=== PATIENT | female | born 1955 | race Caucasian/White ===

== ENCOUNTER 2019-06-26 18:36 | Emergency (ER) | payer OTHER, SELFPAY ==
[2019-06-26 18:37] VITALS: BP 160/71; PULSE 88; RESP 169; TEMP 37.3; O2SAT 97; BMI 33.0
--- NOTE | 2019-06-26 18:44 | ED.DCSUM_ITS ---
History of Present Illness Chief Complaint: Allergic Reaction Detail of Chief Complaint: Facial swelling forehead bilaterally and maxillary region bilaterally Informant: Patient Onset: Today Context: Sudden Onset Timing: Continuous Quality: Facial swelling Location: Forehead and maxillary region bilaterally Current Severity: Mild Worsened by: Possible allergic reaction Relieved by: Nothing Associated Symptoms: No other symptoms Narrative: Patient is a 64-year-old woman with significant past medical history of multiple medical problems who presents because she believes she has swelling of her forehead and maxillary region bilaterally. She denies rash. She denies itching. She denies swelling of her lips, tongue or throat. She denies respiratory or cardiac symptoms. She denies orthostatic symptoms. She denies vomiting or diarrhea. She denies change in voice or difficulty swallowing. She states the redness to her skin is normal. Her facial features were compared to her [employer] driver's license photo and there is no difference in my opinion. Prior similar symptoms: Yes - Angioedema secondary to lisinopril Recent Illness/Hospitalization: No - Past Medical History (1) History of diabetes mellitus Status: Acute (2) History of hypertension Status: Acute (3) Acquired absence of left breast Status: Acute Comment: Planned acquired absence left breast after prophylactic mastectomy (4) Invasive ductal carcinoma of right breast Status: Acute Past Medical History - Allergies and Home Meds Allergies/Adverse Reactions: Allergies lisinopril Allergy (Verified 08/16/16 13:47) Angioedema Prior records reviewed: Yes Surgical History: - - Mastectomy Lives: Alone Smoking Status: Never smoker Alcohol: None Drugs: None Review of Systems General: Denies: Chills, Fever, Malaise, Subjective, Sweats Eyes: Denies: Visual changes - bilaterally, Blurred Vision - bilaterally ENT: Denies: Bilateral ear pain, Rhinorrhea, Sore throat Cardiovascular: Denies: Chest pain, Palpitations Respiratory: Denies: Dyspnea, Cough, Dyspnea on exertion Gastrointestinal: Denies: Nausea, Vomiting, Diarrhea Musculoskeletal: Denies: Myalgias, Arthralgias, Neck pain, Back pain, Swelling, Extremity Pain Skin: Denies: Rash, Wounds Psych: Reports: Depression, Anxiety Hematologic: Denies: Easy bruising, Easy bleeding Allergy: Denies: Uticaria, Swelling of the mouth, Swelling of the tongue Physical Exam Vital Signs/Narrative: Vital Signs Temp Pulse Resp BP Pulse Ox 06/26/19 18:37 99.2 F H 88 169 H 160/71 H 97 Inital Vital Signs reviewed: Yes General: Well nourished, Well developed, No Acute Distress Head: Normocephalic, Atraumatic Eyes: Perrl, EOMI. Negative for: Pale conjunctiva, Scleral icterus ENT: Moist mucous membranes, No rhinorrhea, TM's clear. Negative for: Dry mucous membranes, Nasal congestion, Sinus tenderness Neck: Supple, Nontender, No lymphadenopathy, No JVD, - - Trachea is midline. There is no stridor. There is no carotid bruits. Cardiovascular: Regular rate, Regular rhythm, No murmurs, Normal S1, Normal S2 Respiratory: No distress, CTA bilaterally, Chest nontender Back: Nontender, Normal Inspection Extremities: Nontender, No edema Skin: Normal color, No rash, No Trauma. Negative for: Cyanosis, Diaphoresis, Jaundice Neurological: Alert, Oriented x3, Cranial nerves II-XII grossly intact, Normal Strength, Normal Sensation Psychological: Normal affect, Normal Mood Diagnostic/Tx/Re-eval - Medical Decision Making Since patient has history of anxiety and phobias will observe in the emergency department for 30 to 60 minutes.She states she completed mowing the ER at 1530. Patient was reassessed at 1950. There is no change in appearance. There is no angioedema, there is no erythema, there is no urticaria. ED Disposition - Plan for ED Patient: Disposition: Home or Assisted Living Diagnosis: Facial swelling Instructions: MEDICAL SCREENING EXAM, NonUrgent Referrals: Wolfgang Torres III, MD [Primary Care Provider] - As Needed
[2019-06-26 20:04] VITALS: BP 135/72; PULSE 81; RESP 16; O2SAT 98
== END 2019-06-26 20:05 | disposition home or self-care (01) ==
PROVIDERS: Emergency Provider Emergency Medicine; Family Provider Family Medicine; PCP Family Medicine
DX: R22.0 Localized swelling, mass and lump, head (principal); E11.9 Type 2 diabetes mellitus without complications; I10 Essential (primary) hypertension; Z85.3 Personal history of malignant neoplasm of breast; Z90.12 Acquired absence of left breast and nipple; Z79.84 Long term (current) use of oral hypoglycemic drugs; Z79.899 Other long term (current) drug therapy
CPT/HCPCS: 99284

== ENCOUNTER 2020-09-19 14:38 | Emergency (ER) | payer OTHER, SELFPAY ==
[2020-09-19 14:40] VITALS: BP 145/84; PULSE 99; RESP 18; TEMP 36.6; O2SAT 98; BMI 32.9
--- NOTE | 2020-09-19 14:51 | VDLE_ITS ---
Reason For Study: pain Procedure LEFT This is a venous duplex using B-mode, color GSV is normal. flow and spectral Doppler. CFV is compressible, spontaneous, phasic, Exam performed portable in ED. competent, and demonstrates normal The exam was abbreviated due to the COVID 19 augmentation. protocol. FV is compressible, spontaneous, phasic, The exam was diagnostic. competent and demonstrates normal A preliminary report was called and/or faxed augmentation. to Dr. Ignacio. POP V is compressible, spontaneous, phasic, competent and demonstrates normal augmentation. T/P Trunk is compressible. PTV is compressible. LT PerV is compressible. Heterogeneous area in the gastroc muscle measuring .62 x 5.52 cm in short. Area is nonvascular. Interpretation Summary There is no evidence of left lower extremity deep vein thrombosis. Left great saphenous vein appears patent and compressible segmentally. Nonvascular 0.62 x 5.52 cm heterogenous structure left gastrocnemius muscle of indeterminate etiology. Mostly cystic. Clinical correlation would be indicated. COVID-19 protocol utilized Ordering Physician: Duane Ignacio Performed By: Michael Diaz RVT
--- NOTE | 2020-09-19 14:53 | ED.VIS.GEN ---
History of Present Illness Chief Complaint: Lower Extremity Injury Informant: Patient Narrative: Patient is a 65-year-old female with a past medical history of diabetes, hypertension, hyperlipidemia who presents to the ED for left leg pain and swelling. Started over the past few days. She did have a pain in this prior which started 10 days ago. She denies any injury to the area. No history of DVT/PE. She has tried taking meloxicam and Aleve for this which did not give significant relief. Ambulating on it makes the pain worse. She currently rates the pain as a 7 out of 10. She is not a smoker. Denies any recent prolonged periods of immobilization. Distant history of knee replacement on that side. No recent surgeries. No chest pain or shortness of breath. No cough or fever/chills. No overlying skin changes. The pain starts in the calf and goes up to the posterior knee region. She denies any joint swelling. She does have a distant history of breast cancer status post resection. Past Medical History - Allergies and Home Meds Allergies/Adverse Reactions: Allergies lisinopril Allergy (Verified 09/19/20 14:42) Angioedema Primary Care Physician: Wolfgang Torres III, MD [Primary Care Provider] - Prior records reviewed: Yes Surgical History: - - Mastectomy Smoking Status: Never smoker Review of Systems All systems negative except as indicated General: Denies: Chills, Fever, Sweats Eyes: Denies: Visual changes - bilaterally, Diplopia ENT: Denies: Rhinorrhea, Sore throat Cardiovascular: Denies: Chest pain, Palpitations Respiratory: Denies: Dyspnea, Cough, Dyspnea on exertion Gastrointestinal: Denies: Abdominal pain, Nausea, Vomiting, Diarrhea Musculoskeletal: Reports: Swelling, Extremity Pain. Denies: Back pain Skin: Denies: Rash, Wounds Neurological: Denies: Headache, Weakness, Numbness Physical Exam Vital Signs/Narrative: Vital Signs Temp Pulse Resp BP Pulse Ox 09/19/20 14:40 97.9 F 99 18 145/84 H 98 Inital Vital Signs reviewed: Yes General: Well nourished, Well developed, No Acute Distress Head: Normocephalic, Atraumatic Eyes: Perrl, EOMI ENT: Moist mucous membranes, No rhinorrhea Neck: Supple, Nontender Cardiovascular: Regular rate, Regular rhythm, No murmurs Respiratory: No distress, CTA bilaterally, Chest nontender Abdomen: Soft, Nontender, Nondistended Back: Nontender, Normal Inspection Extremities: Nontender, Edema - She does appear to have trace edema bilaterally., Calf Tenderness - On the left, - - 2+ DP pulse bilaterally. Sensation intact. Full range of motion without any significant joint tenderness. Skin: Normal color, No rash Neurological: Alert, Oriented x3, Normal Strength, Normal Sensation Psychological: Normal affect, Normal Mood Diagnostic/Tx/Re-eval - Medical Decision Making Patient presents to the ED for left calf pain and swelling. Upon arrival to the emergency department vital signs within normal limits. Will check ultrasound of the lower extremity to evaluate for DVT. Ultrasound of the lower extremity did not show any evidence of DVT. There was a heterogenous area of the gastroc muscle which could represent a partial muscle tear. She otherwise has good range of motion of her ankle. She is neurovascular intact. Recommend symptomatic treatment. Have her follow-up with her PCP. This continues to get worse she may benefit from orthopedic referral. I did advise her to use RICE technique. She is agreeable with this plan. Will discharge home in stable condition. All questions answered. ED Disposition - Plan for ED Patient: Disposition: Home or Assisted Living Diagnosis: Leg pain, Leg swelling Instructions: ED Muscle Strain, Extremity Referrals: Wolfgang Torres III, MD [Primary Care Provider] - 1-2 Days if not improving
[2020-09-19 15:44] VITALS: PULSE 86; RESP 16; O2SAT 97
== END 2020-09-19 15:46 | disposition home or self-care (01) ==
LOC: ED 15:29
PROVIDERS: Emergency Provider Emergency Medicine; PCP Family Medicine
DX: M79.605 Pain in left leg (principal); M79.89 Other specified soft tissue disorders; E78.5 Hyperlipidemia, unspecified; I10 Essential (primary) hypertension; E11.9 Type 2 diabetes mellitus without complications
CPT/HCPCS: 93971; 99282

== ENCOUNTER → 2020-11-02 15:54 | Outpatient (CLI) | payer OTHER, SELFPAY ==
[2020-11-02 16:52] LABS: Absolute Lymphocyte Count 1.53 X10^3/uL (0.83-4.51); Basophil# 0.07 X10^3/uL; Basophil% 1.1 % (0-1); Eosinophil# 0.18 X10^3/uL; Eosinophils% 2.9 % (0-5); Hematocrit 36.4 % (37-47); Lymphocyte # 1.53 X10^3/ul (4.0); Lymphocyte % 24.5 % (19-41); Mean Corpuscular Hgb 29.3 pg (27.0-32.0); Mean Platelet Vol. 8.4 fl (6.2-12.0); NRBC Flagged by Analyzer 0 % (0-5); Neutrophil # 3.96 X10^3/uL (2.7-7.7); Neutrophil % 63.3 % (47-70); Platelet Count 416 K/mm3 (150-450); RBC Distribution Width CV 13.5 % (11.6-14.6); RBC Distribution Width SD 43.9 fl (35.1-43.9); Red Blood Count 4.09 M/mm3 (4.2-5.4); White Blood Count 6.3 K/mm3 (4.4-11.0)
[2020-11-02 16:54] LABS: Erythrocyte Sedimentation Rate 12 mm/hr (0-30)
[2020-11-02 17:35] LABS: CRP 3.28 mg/L (0.0-3.0)
== END ==
PROVIDERS: PCP Family Medicine; Referring Provider Physician Assistant; Visit Provider Physician Assistant
DX: Z96.652 Presence of left artificial knee joint (principal)
CPT/HCPCS: 36415; 85025; 85652; 86140

== ENCOUNTER → 2020-11-13 14:05 | Outpatient (CLI) | payer OTHER, SELFPAY ==
--- NOTE | 2020-11-13 14:12 | CT_ITS ---
STUDY: CT LEFT KNEE WITHOUT CONTRAST REASON FOR EXAM: Female, 65 years old. Left knee pain, artificial knee. MAR used. RADIATION DOSAGE (If Supplied By Facility): CTDIvol = ( 15.35 ) mGy, DLP = ( 496.95 ) mGycm TECHNIQUE: Transaxial CT imaging of the knee was performed. Coronal and sagittal images were reformatted. Individualized dose optimization techniques were used for this CT. COMPARISON: None. FINDINGS: There is evidence of a prior total knee replacement. There is good alignment. Small joint effusion. The quadriceps tendon is grossly normal. The patellar tendon is grossly normal. Normal Hoffa''s fat pad. No soft tissue mass is seen. CT/Extremity Lower without Contra IMPRESSION: Status post total knee replacement. There is good alignment. Small joint effusion. Electronically Signed: Ronald Delgado MD at 14:49 EST , Service support ,
== END ==
PROVIDERS: PCP Family Medicine; Referring Provider Physician Assistant; Visit Provider Physician Assistant
DX: Z96.652 Presence of left artificial knee joint (principal)
CPT/HCPCS: 73700

== ENCOUNTER 2020-12-15 08:00 | Outpatient (RCR) | payer OTHER, SELFPAY | END 2021-02-27 23:59 | LOC: IMMUN 08:00 | PROVIDERS: PCP Family Medicine; Visit Provider Family Medicine | DX: Z23 Encounter for immunization (principal) | CPT/HCPCS: 0001A; 0002A; 91300 ==

== ENCOUNTER 2024-04-21 17:30 | Outpatient (RCR) | payer SELFPAY | END 2024-04-21 23:59 | LOC: NS 17:30 | DX: Z71.3 Dietary counseling and surveillance (principal) ==

== ENCOUNTER 2024-04-26 12:12 | Outpatient (RCR) | payer SELFPAY | END 2024-05-22 23:59 | LOC: NS 12:12 | DX: Z71.3 Dietary counseling and surveillance (principal) ==